=== PATIENT | female | born 1970 | race American Indian/Alaskan Native ===

== ENCOUNTER 2016-09-28 10:08 | Outpatient (CLI) | payer OTHER ==
--- NOTE | 2016-09-29 09:40 | Magnetic Resonance Report ---
BILATERAL BREAST MRI WITHOUT AND WITH CONTRAST: 09/28/16 10:08:00 CLINICAL: Newly diagnosed left breast cancer. Status post left stereotactic breast biopsy on 09/17/16 with pathologic diagnosis of high-grade DCIS. She also had a right ultrasound-guided needle biopsy on 09/07/16 at 1 o'clock 3 cm from the nipple and pathology revealed intraductal papilloma with usual ductal hyperplasia. COMPARISON:Recent mammograms from [facility] and [facility], [place]. TECHNIQUE: Axial 1.0-mm T1 without, axial high resolution 2.0-mm T2 and axial 1.0-mm dynamic Vibrant high-resolution postcontrast T1 fat saturation sequences on a 1.5 Zuri magnet. The examination was performed with an 8 channel dedicated [place]in[place] breast coil. Post processing with CAD and subtraction was performed on an [employer] workstation. 24.0 cc of Multihance was injected without incident for the contrast portion of the exam. Consent was obtained prior to the administration of the contrast. FINDINGS: Right: Mild background parenchymal enhancement. No mass or suspicious enhancement of the right breast. No biopsy clip or lesion is identified to correlate with the recent biopsy at 1 o'clock 3 cm from the nipple. No suspicious lymph nodes. Left: Mild background parenchymal enhancement. A stereotactic biopsy cavity is located in the upper-inner quadrant 8.5 cm from the nipple an 8.4 cm from the chest wall. It measures 2.0 x 1.2 x 1.0 cm. No mass or suspicious enhancement is identified at the cavity. There is mild peripheral enhancement thought to be expected benign postbiopsy hyperemia. 2 level one axillary lymph nodes have suspicious morphology with minimal central fat. The largest measures 1.9 x 0.9 cm. It has a lobular shape and the cortex is mildly thickened at 5 mm. An axillary tail lymph node has central fat and benign morphology and measures 6.9 x 4.7 x 3.3 mm. No suspicious internal mammary lymph nodes. IMPRESSION: Known left breast cancer and no additional suspicious lesion of either breast. However, two suspicious left axillary lymph nodes. Recommend ultrasound guided needle core biopsy of the largest left axillary lymph node. RIGHT BI-RADS 1 -- Negative LEFT BI-RADS 6 -- Known Cancer
== END 2016-09-28 10:09 | disposition home or self-care (01) ==
LOC: SPVIMAG 10:08
PROVIDERS: ATTEND Surgery
DX: C50.312 Malignant neoplasm of lower-inner quadrant of left female breast (principal)
CPT/HCPCS: 0159T; A9577; C8908; 77059

== ENCOUNTER 2016-10-07 15:11 | Outpatient (CLI) | payer OTHER ==
--- NOTE | 2016-10-08 08:10 | Ultrasound Report ---
ULTRASOUND GUIDED NEEDLE CORE BIOPSY OF A LEFT AXILLARY LYMPH NODE WITH CLIP PLACEMENT : 10/07/16 15:11:00 CLINICAL: Newly diagnosed left breast cancer with a suspicious left axillary lymph node on MRI. COMPARISON : FINDINGS: The procedure was explained to the patient and informed consent was obtained. Ultrasound demonstrated 2 lymph nodes in the left axilla with the largest seen the suspicious lymph node noted on MRI. The skin in the axilla was prepped with Betadine and anesthetized with 1% lidocaine. Ultrasound guided needle core biopsy of the thickest portion of the lymph node was performed through a small dermatotomy using 2% lidocaine with epinephrine for deep anesthesia and a 18-gauge Achieve biopsy device. 2 samples were obtained and placed in formalin. A clip was deployed within the lymph node. Hemostasis was achieved with minimal pressure and a sterile dressing was applied. The patient tolerated the procedure well and there were no apparent complications. She was discharged in good condition and was given instructions for wound care and followup. IMPRESSION: Uncomplicated ultrasound-guided needle core biopsy of a left axillary lymph node with clip placement.
== END 2016-10-07 15:12 | disposition home or self-care (01) ==
LOC: SPVWC 15:11
PROVIDERS: ATTEND Surgery
DX: C50.912 Malignant neoplasm of unspecified site of left female breast (principal)
CPT/HCPCS: 19083; A4648; 88305

== ENCOUNTER 2016-11-04 06:49 | Day surgery (SDC) | payer OTHER ==
[~2016-11-04 06:49] MED LIST: MARCAINE 0.25% INFILTRATI ONE; WATER FOR IRRIG STERILE IR ONE; XYLOCAINE 1% 20 mL INFILTRATI ONE
[2016-11-04] MEDS ORDERED: VERSED IV NR (08:00)
[2016-11-04] MEDS ORDERED: LACTATED RINGERS 1,000 ML IV SCH (08:00)
--- NOTE | 2016-11-04 08:00 | Anesthesia Day of Surgery ---
Anesthesia Day of Surgery - Day of Surgery Patient Examined: Yes Patient H&P Reviewed: Yes Patient is NPO: Yes
--- NOTE | 2016-11-04 08:02 | Anesthesia Consultation ---
Anesthesia Consult and Med Hx Date of service: 11/04/16 - Airway Anesthetic Teeth Evaluation: Good ROM Head & Neck: Adequate Mental/Hyoid Distance: Adequate Mallampati Class: Class II Intubation Access Assessment: Probably Good - Pulmonary Exam CTA: Yes - Cardiac Exam Cardiac Exam: RRR - Pre-Operative Health Status ASA Pre-Surgery Classification: ASA3 Proposed Anesthetic Plan: General - Pulmonary Hx Smoking: Yes (once weekly) Hx Sleep Apnea: No (HARLEY PRE SCREEN LOW RISK) - Cardiovascular System Hx Hypertension: No - Other Systems Hx Alcohol Use: Yes (2-3 drinks daily)
[2016-11-04] MEDS ORDERED: VANCOMYCIN/NS 1 GM/250 ML 1 GM/250 ML BAG IV NR (09:00)
[2016-11-04] MEDS ORDERED: PEPCID PO NR (09:00)
--- NOTE | 2016-11-04 10:59 | Mammography Report ---
Left breast needle localization procedure. History: Left breast cancer. Procedure: The patient's skin surface was prepped using sterile technique. Local anesthetic was injected in the skin. Using mammographic guidance, a 3.5 cm Do needle was advanced into the area of the biopsy clip and residual microcalcifications. Satisfactory localization was accomplished and a hookwire was left in place. The patient tolerated the procedure well clinically.
--- NOTE | 2016-11-04 11:00 | Mammography Report ---
Right breast the localization procedure. History: Right papilloma. Procedure: The patient's skin surface was prepped using sterile technique. Local anesthetic was injected in the skin. Using mammographic guidance, a 5.0 cm Do needle was advanced into the area of the single biopsy clip. Satisfactory localization was accomplished and a hookwire was left in place. The patient tolerated the procedure well clinically. The patient was sent to the OR in satisfactory condition.
[2016-11-04] MEDS ORDERED: DILAUDID IV PRN (14:15)
[2016-11-04] MEDS ORDERED: NORCO 5/325 PO PRN ×2 (14:30→19:12)
[2016-11-04] MEDS ORDERED: ZOFRAN IV PRN (14:30)
[2016-11-04] MEDS ORDERED: DILAUDID ONE ×2 (14:44→18:32)
[2016-11-04] MEDS ORDERED: DIPRIVAN 10 MG/ML IV ONE (14:45)
--- NOTE | 2016-11-04 14:45 | Short Stay Summary ---
Short Stay Documentation Date of service: 11/04/16 - History H&P: obtained from office - Allergies and Medications Current Medications: Allergies ampicillin sodium [From Unasyn] Allergy (Verified 10/30/16 09:02) Itching sulbactam sodium [From Unasyn] Allergy (Verified 10/30/16 09:02) Itching Home Medications Medication Instructions Recorded Confirmed Last Taken Type Solifenacin Succinate [Vesicare] 5 mg PO QDAY 10/30/16 11/04/16 10/28/16 04:00 History Spironolactone [Aldactone] 50 mg PO PRN PRN 10/30/16 11/04/16 10/30/16 19:00 History HYDROcodone/APAP 5-325 [[place] 1 each PO Q6HR PRN #30 tablet 11/04/16 Unknown Rx 5/325] Active Medications Hydromorphone HCl (Dilaudid) 0.5 mg IV Q10MIN PRN PRN Reason: Pain , Severe (7-10) Stop: 11/04/16 23:59 Lactated Ringer's (Lactated Ringers) 1,000 mls @ 75 mls/hr IV DIRECT ANAND Last Admin: 11/04/16 09:08 Dose: 75 mls/hr Midazolam HCl (Versed) 2 mg IV PREOP NR Stop: 11/04/16 23:59 Last Admin: 11/04/16 14:17 Dose: 2 mg - Brief post op/procedure progress note Date of procedure: 11/04/16 Pre-op diagnosis: Left breast cancer and right breast intraductal papilloma Post-op diagnosis: same Procedure: Left needle localization partial mastectomy and right needle localization excisional biopsy Anesthesia: GETA Findings: Bilateral breast radiograph specimens with wire and clips present Surgeon: DRE HILLMAN Estimated blood loss: minimal Pathology: list (left partial mastectomy and right excisional biopsy) Specimen disposition: to lab Condition: stable - Disposition Condition at discharge: Good Disposition: DC-01 TO HOME OR SELFCARE Short Stay Discharge Plan Activity: other (no heavy lifting) Diet: regular Wound: other (keep incision clean and dry; may shower in 24 hours; no baths, pools or lakes; do not rub or scrub incision) Follow up with: NIRANJAN ROSSI MD [Primary Care Provider] - 7 Days DRE HILLMAN MD [Staff Physician] - 7 Days Prescriptions: HYDROcodone/APAP 5-325 [[place] 5/325] 1 each PO Q6HR PRN #30 tablet PRN Reason: Pain
[2016-11-04] MEDS ORDERED: XYLOCAINE MPF 2% ONE (14:46)
--- NOTE | 2016-11-04 14:52 | Operative Report ---
Operative Report Operative Report: Date of service: 11/04/2016 Preoperative diagnosis: Left breast cancer of the upper innerr quadrant and right breast intraductal papilloma the upper innerr quadrant Postoperative diagnosis: Same Procedure: Left needle localization partial mastectomy and right breast needle localization excisional biopsy Surgeon: Milana Alberto M.D. Anesthesia: Gen. Findings: Bilateral breast radiograph specimens with wire and clips present; left radiograph specimen with clip and additional microcalcifications present as well Complications: None Drains: None Estimated blood loss: Minimal Disposition: PACU in good condition Indications for operative procedure: This is a 46-year-old premenopausal -[place] lady with newly diagnosed left breast cancer of the upper inner quadrant and right breast intraductal papilloma of the upper inner quadrant at the 1:00 position 3 cm from the nipple. Recommendations were to proceed with left partial breast mastectomy for stage 0 left breast cancer and a right breast excisional biopsy for right breast intraductal papilloma. Patient wished to proceed with the above procedures. Procedure detail: The patient was taken to radiology with bilateral wires placed at both areas of concern. The patient was then taken to the operating room. Gen. anesthesia was administered. Bilateral breast were prepped and draped in the postoperative fashions. Timeout was performed. The wires were identified. First began with the right breast. A medial periareolar skin incision was made with a 15 blade knife with dissection taken down to the subcutaneous tissues, first began with the raising of the superior flap with removal of the wire from the skin followed by raising of the medial, inferior and lateral flaps with dissection taken down to the pectoralis muscle. The area of concern was appropriately removed. Specimen was appropriately marked and sent to radiology and pathology. Radiograph specimen with clip and wier present. Hemostasis was obtained. Breast tissue was approximated and closed using interrupted 3-0 Vicryl and skin brought together and closed using a running 4-0 Monocryl and skin affix. Attention was then taken towards the left breast. An upper inner skin incision was made with a 15 blade knife. First began with raising of the superior flap with the removal of wire from the skin. This was followed by raising of the lateral, inferior and medial flap, with all flaps taken down posteriorly to the pectoralis muscle. Partial mastectomy was removed with the aid of the Bovie cautery. Specimen was sent to radiology and pathology. Radiograph specimen with clip, wire and calcifications present. Breast tissue was appropriately mobilized and approximated using interrupted 3-0 Vicryl followed by closing of the skin with a running 4-0 Monocryl and skin affix. She tolerated surgery very well and was awakened from anesthesia without any complications and transferred to PACU in good condition. Both skin incisions were anesthesized with 1% lidocaine mixed with quarter percent marcaine.
[2016-11-04] MEDS ORDERED: MARCAINE 0.25% INFILTRATI ONE ×2 (15:27→16:06)
[2016-11-04] MEDS ORDERED: XYLOCAINE 1% 20 mL INFILTRATI ONE (15:27)
[2016-11-04] MEDS ORDERED: WATER FOR IRRIG STERILE IR ONE (15:27)
[2016-11-04] MEDS ORDERED: ZOFRAN ONE (15:40)
[2016-11-04] MEDS ORDERED: XYLOCAINE 1% 20 mL ONE (16:06)
--- NOTE | 2016-11-04 16:32 | Mammography Report ---
Specimen radiograph. Findings: A single specimen confirms the presence of the biopsy clip and hookwire within the specimen.
[2016-11-04] MEDS ORDERED: LACTATED RINGERS 1,000 ML ONE (16:51)
[2016-11-04 21:25] VITALS: BP 138/81
--- NOTE | 2016-11-05 09:03 | Mammography Report ---
Specimen radiograph. Findings: A single specimen confirms the presence of numerous abnormal microcalcifications and biopsy clip. The hookwire is also noted.
== END 2016-11-04 19:50 | disposition home or self-care (01) ==
LOC: OR 06:49 → MERGE 06:49 → OR 19:50
PROVIDERS: ATTEND Surgery
DX: D05.12 Intraductal carcinoma in situ of left breast (principal); D24.1 Benign neoplasm of right breast; Z17.0 Estrogen receptor positive status [ER+]; F17.200 Nicotine dependence, unspecified, uncomplicated; E66.9 Obesity, unspecified; Z68.33 Body mass index [BMI] 33.0-33.9, adult; Z88.1 Allergy status to other antibiotic agents; Z88.8 Allergy status to other drugs, medicaments and biological substances; Z98.890 Other specified postprocedural states; Z72.89 Other problems related to lifestyle; Z80.49 Family history of malignant neoplasm of other genital organs
CPT/HCPCS: 19125; 19281; 19282; 19301; 36415; 76098; 81025; 84132; 88307; J1170; J2250; J2405; J2704; J3370; J7120

== ENCOUNTER 2017-04-08 14:59 | Outpatient (CLI) | payer OTHER | END 2017-04-08 15:00 | disposition home or self-care (01) | LOC: LABHHL 14:59 | PROVIDERS: ATTEND Surgery | DX: N61.1 Abscess of the breast and nipple (principal) | CPT/HCPCS: 87075; 87076; 87116; 87186 ==

== ENCOUNTER 2020-04-07 11:14 | Emergency (ER) | payer OTHER ==
[2020-04-07 11:38] VITALS: BP 148/95
--- NOTE | 2020-04-07 11:40 | Emergency Department Report ---
Upper Respiratory HPI - HPI Chief Complaint: Upper Respiratory Infection Stated Complaint: COUGH/POSS UTI Time Seen by Provider: 04/07/20 11:27 Duration: 1 week URI Symptoms: Rhinorrhea: Yes, Sore Throat: No, Ear Pain: No, Cough: Yes, Shortness of Breath: No, Sick Contacts: No, Unable to Take Fluids: No, Urine Output Abnormal: No, Listless Behavior: No Other History: This is a 50-year-[facility] with no signs of distress presents with dry nonproductive cough, body aches, loss of taste and smell, and generlized weakness x1 week. Patient also stated has some dysuria that started several days. Denies any other urinary symptoms. Denies any flank or back pains. Patient denies any chest pain, shortness of breathe, fever, chills, nausea, vomiting, headache, stiff neck, abdominal pain, numbness or tingling. Patient denies any recent travels, long car rides, or recent hospital stays. Allergies to ampicillin sodium and sulbactam sodium. - Home Meds and Allergies Home Medications: Home Medications Medication Instructions Recorded Confirmed Last Taken Solifenacin Succinate [Vesicare] 5 mg PO QDAY 10/30/16 11/04/16 10/28/16 04:00 Spironolactone [Aldactone] 50 mg PO PRN PRN 10/30/16 11/04/16 10/30/16 19:00 Previous Rx's Medication Instructions Recorded Last Taken Type HYDROcodone/APAP 5-325 [[place] 1 each PO Q6HR PRN #30 tablet 11/04/16 Unknown Rx 5/325] Sulfamethoxazole/Trimethoprim 1 each PO BID #14 tablet 04/07/20 Unknown Rx [Bactrim DS TAB] Allergies/Adverse Reactions: Allergies Allergy/AdvReac Type Severity Reaction Status Date / Time ampicillin sodium Allergy Itching Verified 10/30/16 09:02 [From Unasyn] sulbactam sodium Allergy Itching Verified 10/30/16 09:02 [From Unasyn] ED Review of Systems ROS: Stated complaint: COUGH/POSS UTI Other details as noted in HPI Constitutional: denies: chills, fever Eyes: denies: eye pain, eye discharge, vision change ENT: congestion. denies: ear pain, throat pain Respiratory: cough. denies: shortness of breath, wheezing Cardiovascular: denies: chest pain, palpitations Endocrine: no symptoms reported Gastrointestinal: denies: abdominal pain, nausea, vomiting, diarrhea Genitourinary: dysuria. denies: urgency, frequency, hematuria, discharge, abnormal menses, dyspareunia Musculoskeletal: denies: back pain, joint swelling, arthralgia Skin: denies: rash, lesions Neurological: denies: headache, weakness, paresthesias Psychiatric: denies: anxiety, depression Hematological/Lymphatic: denies: easy bleeding, easy bruising ED Past Medical Hx - Past Medical History Hx Hypertension: No - Social History Smoking Status: Never Smoker Substance Use Type: None - Medications Home Medications: Home Medications Medication Instructions Recorded Confirmed Last Taken Type Solifenacin Succinate [Vesicare] 5 mg PO QDAY 10/30/16 11/04/16 10/28/16 04:00 History Spironolactone [Aldactone] 50 mg PO PRN PRN 10/30/16 11/04/16 10/30/16 19:00 History HYDROcodone/APAP 5-325 [[place] 1 each PO Q6HR PRN #30 tablet 11/04/16 Unknown Rx 5/325] Sulfamethoxazole/Trimethoprim 1 each PO BID #14 tablet 04/07/20 Unknown Rx [Bactrim DS TAB] ED Bronchiolitis Physical Exam - Exam General: Vital signs noted. No distress. Alert and acting appropriately. No CVA tenderness. HEENT: No Pharyngeal Erythema, No Conjuctival Injection, No Dry Mucous Membranes, No Rhinorrhea Ear: Neither TM Bulge, Neither TM Erythema, Neither EAC Discharge Neck: No Adenopathy, No Rigidity Lungs: Yes Clear Lung Sounds, Yes Good Air Exchange, Yes Cough, No Wheezes, No Stridor, No Nasal Flaring, No Retractions, No Use of Accessory Muscles Heart: Yes Regular, No Murmur Abdomen: Yes Normal Bowel Sounds, No Tenderness, No Peritoneal Signs Skin: No Rash, No Eczema Neurologic: Alert and oriented, no deficits. Musculoskeletal: Unremarkable. ED Physical Exam - General Limitations: No Limitations ED Course Vital Signs 04/07/20 11:22 Temperature 98.0 F Pulse Rate 106 H Respiratory 18 Rate Blood Pressure 148/95 O2 Sat by Pulse 100 Oximetry - Reevaluation(s) Reevaluation #1: 04/07/20 11:38 Patient is speaking in full sentences with no signs of distress noted. ED Medical Decision Making - Lab Data Result diagrams: 04/07/20 11:50 04/07/20 11:50 - Radiology Data Referring Physician: CAROLYN SOTO Patient Name: MELISSA JIMENEZ Date of : 1970 Sex: Female Report Date: 2020-04-07 Report Status: Finalized [address] [address] XRay Report Signed Patient: MELISSA JIMENEZ MR#: [id number] 83 : 1970 Acct:[id number] Age/Sex: 50 / F ADM Date: 04/07/20 Loc: ED Attending Dr: Ordering Physician: CAROLYN SOTO NP Date of Service: 04/07/20 Procedure(s): XR chest routine 2V Accession Number(s): [id number] cc: CAROLYN SOTO NP Fluoro Time In Minutes: CHEST 2 VIEWS INDICATION / CLINICAL INFORMATION: cough. COMPARISON: None available. FINDINGS: SUPPORT DEVICES: None. HEART / MEDIASTINUM: No significant abnormality. LUNGS / PLEURA: No significant pulmonary or pleural abnormality. No pneumothorax. ADDITIONAL FINDINGS: No significant additional findings. IMPRESSION: 1. No acute findings. Signer Name: Manuela Chung MD Signed: 04/07/2020 12:22 PM Workstation Name: [id number] Transcribed By: Dictated By: MANUELA CHUNG III Electronically Authenticated By: MANUELA CHUNG III Signed Date/Time: 04/07/20 1222 DD/ 1222 TD/TT: - Medical Decision Making 50-year-old female that presents with suspected COVID. Patient is stable and was examined by me. Patient does meet COVID-19 precautions and patient was educated and instructed to self quaratine and seek medical attention if symptoms worsen and continue. Patient is notified of the chest xray with no questions noted by the patient. Patient was educated on OTC suppurative care and medications. Vital signs are stable. Patient was instructed to Follow-up with a primary care doctor in 3-5 days or if symptoms worsen and continue return to emergency room as soon as possible. At time of discharge, the patient does not seem toxic or ill in appearance. No acute signs of distress noted. Patient agrees to discharge treatment plan of care. No further questions noted by the patient. Critical care attestation.: If time is entered above; I have spent that time in minutes in the direct care of this critically ill patient, excluding procedure time. ED Disposition Clinical Impression: Suspected COVID-19 virus infection UTI (urinary tract infection) Qualifiers: Urinary tract infection type: acute cystitis Hematuria presence: without hematuria Qualified Code(s): N30.00 - Acute cystitis without hematuria Disposition: TO HOME OR SELFCARE Is pt being admited?: No Does the pt Need Aspirin: No Condition: Stable Instructions: COVID-19 Frequently Asked Questions, Urinary Tract Infection, Adult Additional Instructions: Follow-up with a primary care doctor in 3-5 days or if symptoms worsen and continue return to emergency room as soon as possible. Prescriptions: Sulfamethoxazole/Trimethoprim [Bactrim DS TAB] 1 each PO BID #14 tablet Referrals: [facility] MD SENG [Primary Care Provider] - 3-5 Days PRIMARY CAREMD [Referring] - 3-5 Days LIA DEWITT MD [Staff Physician] - 3-5 Days Forms: Work/School Release Form(ED) Time of Disposition: 13:52
[2020-04-07 12:18] LABS: Basophils % (Auto) 0.3 % (0.0-1.8); Eosinophils # (Auto) 0.1 K/mm3 (0.0-0.4); Eosinophils % (Auto) 0.8 % (0.0-4.3); Hematocrit 40.4 % (30.3-42.9); Hemoglobin 13.5 gm/dl (10.1-14.3); Lymphocytes # (Auto) 2.5 K/mm3 (1.2-5.4); Mean Corpuscular HGB Conc 33 % (30-34); Mean Corpuscular Volume 93 fl (79-97); Monocytes # (Auto) 0.6 K/mm3 (0.0-0.8); Monocytes % (Auto) 6.3 % (0.0-7.3); Platelet Count 287 K/mm3 (140-440); Red Blood Count 4.34 M/mm3 (3.65-5.03)
--- NOTE | 2020-04-07 12:27 | XRay Report ---
CHEST 2 VIEWS INDICATION / CLINICAL INFORMATION: cough. COMPARISON: None available. FINDINGS: SUPPORT DEVICES: None. HEART / MEDIASTINUM: No significant abnormality. LUNGS / PLEURA: No significant pulmonary or pleural abnormality. No pneumothorax. ADDITIONAL FINDINGS: No significant additional findings. IMPRESSION: 1. No acute findings. Signer Name: Enrique Chung MD Signed: 04/07/2020 12:22 PM Workstation Name: [email or web address]
[2020-04-07 12:30] LABS: Alanine Aminotransferase 19 units/L (7-56); Albumin 3.8 g/dL (3.9-5); Blood Urea Nitrogen 8 mg/dL (7-17); Calcium 8.9 mg/dL (8.4-10.2); Hemolysis Index 29
[2020-04-07 12:37] LABS: BUN/Creatinine Ratio 13
[2020-04-07 13:24] LABS: Bacteria,Urine 1+ /HPF (Negative); Bilirubin,Urine NEG (Negative); Blood,Urine NEG (Negative); Color,Urine Yellow (Yellow); Mucus,Urine FEW /HPF; Protein,Urine <15 mg/dL mg/dL (Negative); Urobilinogen,Urine < 2.0 mg/dL (<2.0)
[2020-04-07 13:28] LABS: HCG Qualitative,Urine Negative (Negative)
== END 2020-04-07 13:59 | disposition home or self-care (01) ==
LOC: ED 11:14
DX: N39.0 Urinary tract infection, site not specified (principal); Z20.828 Contact with and (suspected) exposure to other viral communicable diseases; Z79.899 Other long term (current) drug therapy; Z88.8 Allergy status to other drugs, medicaments and biological substances
CPT/HCPCS: 36415; 71046; 80053; 81001; 81025; 85025; 87086

== ENCOUNTER 2020-10-01 09:14 | Outpatient (CLI) | payer OTHER ==
--- NOTE | 2020-10-11 16:56 | Mammography Report ---
DIGITAL SCREENING MAMMOGRAM WITH TOMOSYNTHESIS WITH CAD, 10/03/2020 CLINICAL INFORMATION / INDICATION: Screening TECHNIQUE: Digital bilateral 2D and 3D mammography with tomosynthesis was obtained in the craniocaud al and mediolateral oblique projections. Computer-Aided Detection (CAD) analysis was used for interp retation of this study. COMPARISON: 09/28/2019 and prior FINDINGS: Breast Density: The breasts are heterogeneously dense, which may obscure small masses. No dominant mass, suspicious calcifications, or architectural distortion in either breast. Bilateral areas of scarring are again seen without change. IMPRESSION: No mammographic evidence of malignancy. Follow up recommendation: Routine yearly BI-RADS Category 2: Benign. A "normal" or negative report should not discourage follow up or biopsy of a clinically significant f inding. A written summary of these findings will be mailed to the patient. The patient will be entered into a mammography reporting system which will generate a reminder letter for the patient's next appointmen t at the appropriate interval. The [employer] [place] [employer] recommends yearly mammograms starting at age 40 and continuing as l ta as a woman is in good health. Breast MRI is recommended for women with an approximate 20-25% or greater lifetime risk of breast cancer, including women with a strong family history of breast or ova kelin cancer or who have been treated for Hodgkin's disease. Signer Name: Tae Esquivel MD Signed: 10/11/2020 4:52 PM Workstation Name: [id number]
== END 2020-10-01 09:15 | disposition home or self-care (01) ==
LOC: SPVWC 09:14
PROVIDERS: ATTEND Surgery
DX: Z12.31 Encounter for screening mammogram for malignant neoplasm of breast (principal)
CPT/HCPCS: 77063; 77067